=== PATIENT | female | born 1990 | race Caucasian/White ===

== ENCOUNTER 2019-03-01 16:33 | Emergency (ER) | payer MEDICAID ==
[~2019-03-01] VITALS: Ht 172.7 cm; Wt 91.2 kg
[~2019-03-01 16:33] MED LIST: LIDOcaine 1% W/epiNEPHrine 1:100,000 20ml vial ONE
[2019-03-01 17:00] VITALS: BP 138/90
[2019-03-01] MEDS ORDERED: CEPH250T PO (18:12)
[2019-03-01] MEDS ORDERED: CLIN300C70 PO (18:12)
== END 2019-03-01 18:28 | disposition home or self-care (01) ==
LOC: ER 16:34
DX: L02.413 Cutaneous abscess of right upper limb (principal); Z88.2 Allergy status to sulfonamides
CPT/HCPCS: 10060; 99283